=== PATIENT | female | born 1965 | race Caucasian/White ===

== ENCOUNTER → 2017-07-16 | Outpatient (CLI) | payer OTHER | END | disposition home or self-care (01) | LOC: SURG 14:06 | PROVIDERS: ATTEND Anesthesiology | DX: M54.16 Radiculopathy, lumbar region (principal); M53.3 Sacrococcygeal disorders, not elsewhere classified; M79.7 Fibromyalgia; E11.8 Type 2 diabetes mellitus with unspecified complications; E03.9 Hypothyroidism, unspecified; G43.909 Migraine, unspecified, not intractable, without status migrainosus; I10 Essential (primary) hypertension; F17.200 Nicotine dependence, unspecified, uncomplicated; Z90.49 Acquired absence of other specified parts of digestive tract | CPT/HCPCS: 99214 ==

== ENCOUNTER 2019-02-28 07:21 | Inpatient (IN) | payer SELFPAY ==
[~2019-02-28] VITALS: Ht 170.2 cm; Wt 76.3 kg
[2019-02-28] MEDS ORDERED: IV NORMAL SALINE 1,000ML 1,000 ML IV ONE ×2 (07:30→09:00)
--- NOTE | 2019-02-28 07:46 | PHYS DOC ---
Past History Past Medical History: Hypertension Past Medical History Limited due to poor historian Past Surgical History Limited due to poor historian Smoking: Quit Greater Than 1 Year Alcohol Use: None Drug Use: None Social History Limited due to poor historian Adult General Chief Complaint Chief Complaint: SYNCOPE HPI HPI 53-year-old female presents via EMS with report of dizziness upon getting up this morning. It is unclear if patient had a full syncopal episode. Patient is a poor historian. Patient reports she thinks it might be due to her recently started blood pressure medications. Denies fever/chills. Patient reports recent fall but cannot report where she hurts. EMS reports this AM patient did not fall. Paramedics has reported patient recently admitted to [place], however upon spouse arrival patient actually recently admitted to [facility]. Spouse also reports concern that patient is having increased psychiatric issues at this time. Reports very liable. Reports will be cognisant one minute and then will start wailing and crying. Also with have hallucinations such as having a full conversation on the phone with no one on the other line. Psychiatry had seen patient at [facility] and had recommend inpatient psychiatric stay, however patient had refused. HPI limited due to poor historian. Review of Systems Review of Systems Constitutional: Denies fever or chills HENT: Denies epistaxis Respiratory: Denies cough or shortness of breath Cardiovascular: Reports syncope or near syncope GI: Denies vomiting Musculoskeletal: Denies neck pain. Denies deformity Integument: Denies laceration Neurologic: Reports dizziness and lightheadedness Review of systems limited due to poor historian. Current Medications Current Medications Current Medications Medications (Trade) Dose Ordered Sig/Roberto Start Time Stop Time Status Last Admin Dose Admin Sodium Chloride 1,000 ml @ 1,000 mls/hr 1X ONCE 02/28/19 07:30 02/28/19 08:29 UNV Physical Exam Physical Exam Constitutional: Well developed, well nourished, no acute distress, non-toxic appearance HENT: Normocephalic, atraumatic, oropharynx moist, right nare rings noted Eyes: PERRL, EOMI, conjunctiva normal, no discharge Neck: Normal range of motion, no midline tenderness, supple Cardiovascular: Heart rate normal, regular rhythm Lungs & Thorax: Bilateral breath sounds clear to auscultation, no wheezing Abdomen: Soft, no tenderness, pelvis stable and nontender Skin: Warm, dry, no erythema, no rash Extremities: No tenderness, ROM intact, no edema Neurologic: Alert and oriented X 3, patient slow to respond but appropriate, no focal deficits noted Psychologic: Affect flat EKG EKG @0737 NSR at 79bpm, NO ST elevation, t wave inversion III, low voltage QRS Radiology/Procedures Radiology/Procedures PROCEDURE: PORTABLE CHEST 1V AP chest x-ray HISTORY: Syncope. FINDINGS: Heart size normal. Mediastinal silhouette is normal. No pneumothorax or pleural effusions. At the left upper lobe there is a 1.3 cm density raising the possibility of pulmonary nodule overlapping the posterior sixth rib. Bones are unremarkable. IMPRESSION: No acute process. Possible 1.3 cm left upper lobe pulmonary nodule. This could be further assessed with CT imaging. Electronically signed by: Chadd Shelby MD (02/28/2019 8:16 AM) [facility] Course & Med Decision Making Course & Med Decision Making Pertinent Labs and Imaging studies reviewed. (See chart for details) Patient presents via EMS with report of syncopal vs near syncopal episode. Patient recently admitted to [facility] for hypertension. Reports started on new medications. Patient reports she thinks that the blood pressure medications are making her dizzy/lightheaded. Patient noted to be hypotensive 94/61 upon arrival. Patient with flat affect and slow to respond. NO focal deficit noted, however, patient is a poor historian. EKG stable. Labs obtained and posted to chart. CXR stable. Orthostatic VS positive upon sitting down to 79/58. Unable to stand due to lightheadedness. IVF hydration provided. Hypokalemia addressed. UA also with signs of infection. Empiric antibiotics given. Of note: Patient's spouse arrived and provided more information. Patient actually was at [facility] recently where they started new medications. Spouse also reports concern that patient is having increased psychiatric issues at this time. Reports very liable. Reports will be cognisant one minute and then will start wailing and crying. Also with have hallucinations such as having a full conversation on the phone with no one on the other line. Psychiatry had seen patient at [facility] and had recommend inpatient psychiatric stay, however patient had refused. Patient requiring admission for further evaluation and treatment. Discussed with Dr. Singer (hospitalist) who is in agreement with admission. Discussed findings and plan with patient, who acknowledges understanding and agreement. Dragon Disclaimer Dragon Disclaimer This electronic medical record was generated, in whole or in part, using a voice recognition dictation system. Departure Departure: Impression: Primary Impression: Episode of syncope Additional Impressions: Orthostatic hypotension Psychiatric symptoms Hypokalemia UTI (urinary tract infection) Disposition: ADMITTED INPATIENT Admitting Physician: Dawood Singer Condition: STABLE Referrals: SAMMIE HICKS (PCP) Critical Care Time Critical care time was 30 minutes which includes time at bedside, spent in discussion of patient's care with specialists and/or family members, with interpretation of laboratory and/or radiological studies and is exclusive of procedures. Problem Qualifiers Primary Impression: Episode of syncope Syncope type: unspecified Qualified Codes: R55 - Syncope and collapse Additional Impressions: UTI (urinary tract infection) Urinary tract infection type: acute cystitis Hematuria presence: without hematuria Qualified Codes: N30.00 - Acute cystitis without hematuria FILEMON PEDERSON DO Feb 28, 2019 07:45
--- NOTE | 2019-02-28 08:19 | RAD ---
AP chest x-ray HISTORY: Syncope. FINDINGS: Heart size normal. Mediastinal silhouette is normal. No pneumothorax or pleural effusions. At the left upper lobe there is a 1.3 cm density raising the possibility of pulmonary nodule overlapping the posterior sixth rib. Bones are unremarkable. IMPRESSION: No acute process. Possible 1.3 cm left upper lobe pulmonary nodule. This could be further assessed with CT imaging. Electronically signed by: Chadd Shelby MD (02/28/2019 8:16 AM) [facility]
[2019-02-28 08:21] LABS: BASO # 0.1 x10^3/uL (0.0-0.2); BASO % 1 % (0-3); EOS % 0 % (0-3); HEMATOCRIT 49.7 % (36.0-47.0); HEMOGLOBIN 17.1 g/dL (12.0-15.5); LYMPH # 2.5 x10^3/uL (1.0-4.8); LYMPH % 19 % (24-48); MEAN CORPUSCULAR HEMOGLOBIN 30 pg (25-35); MEAN CORPUSCULAR HGB CONC 35 g/dL (31-37); MEAN CORPUSCULAR VOLUME 86 fL (79-100); MONO # 0.8 x10^3/uL (0.0-1.1); MONO % 6 % (0-9); NEUT # 10.1 x10^3uL (1.8-7.7); NEUT % 74 % (31-73); PLATELET COUNT 311 x10^3/uL (140-400); RED BLOOD COUNT 5.75 x10^6/uL (3.50-5.40); RED CELL DISTRIBUTION WIDTH 14.4 % (11.5-14.5); WHITE BLOOD COUNT 13.6 x10^3/uL (4.0-11.0)
[2019-02-28] MEDS ORDERED: ONDANSETRON PF 4 MG/2 ML VIAL. IV ONE (09:00)
[2019-02-28 09:04] LABS: ALBUMIN 3.6 g/dL (3.4-5.0); ALBUMIN/GLOBULIN RATIO 0.9 (1.0-1.7); CALCIUM 9.7 mg/dL (8.5-10.1); CREATININE 1.1 mg/dL (0.6-1.0); GFR 51.6; MAGNESIUM 2.1 mg/dL (1.8-2.4); POTASSIUM 3.1 mmol/L (3.5-5.1); TOTAL PROTEIN 7.6 g/dL (6.4-8.2)
[2019-02-28 09:06] LABS: AMPHETAMINE/METHAMPHETAMINE NEG (NEG); BARBITURATES NEG (NEG); BENZODIAZEPINES NEG (NEG); CANNABINOIDS POS (NEG); COCAINE NEG (NEG); METHADONE NEG (NEG); OPIATES NEG (NEG); PHENCYCLIDINE NEG (NEG)
[2019-02-28 09:13] LABS: AMORPHOUS SEDIMENT,UR PRESENT /HPF; BACTERIA,URINE MOD /HPF (0-FEW); BILIRUBIN,URINE LARGE (NEG); CLARITY,URINE CLOUDY; COLOR,URINE AMBER; GLUCOSE,URINE NEG (NEG); NITRITE,URINE POS (NEG); SQUAMOUS EPITHELIAL CELL,UR FEW /LPF; UROBILINOGEN,URINE 1 mg/dL (0.2 mg/dL)
[2019-02-28 09:14] LABS: GRANULAR CASTS,URINE MANY /HPF; HYALINE CASTS, URINE MANY /HPF
[2019-02-28] MEDS ORDERED: DOCU100C28 PO (09:29)
[2019-02-28] MEDS ORDERED: LOSA1TAB22 PO (09:29)
[2019-02-28] MEDS ORDERED: PROP80CA3 PO (09:29)
[2019-02-28] MEDS ORDERED: DOXA8TAB59 PO (09:29)
[2019-02-28] MEDS ORDERED: OLAN5TAB9 PO (09:29)
[2019-02-28] MEDS ORDERED: LEVO75TA5 PO (09:29)
[2019-02-28] MEDS ORDERED: ASPI-630 PO (09:29)
[2019-02-28] MEDS ORDERED: IV NORMAL SALINE 50ML 50 ML ONE (09:30)
[2019-02-28] MEDS ORDERED: cefTRIAXone SODIUM 1 GM VIAL ONE (09:30)
[2019-02-28] MEDS ORDERED: POTASSIUM CHLORIDE 20 MEQ TABLET.ER. PO ONE ×2 (09:45→11:00)
[2019-02-28 10:07] VITALS: BP 132/90
[2019-02-28] MEDS ORDERED: ONDANSETRON PF 4 MG/2 ML VIAL. IV PRN (10:45)
[2019-02-28] MEDS ORDERED: oxyCODONE IR 5 MG TABLET PO PRN (10:45)
[2019-02-28] MEDS: POTASSIUM CL 20MEQ IN 0.9%NACL 1,000 ML IV SCH ×2 (11:08→21:06)
[2019-02-28 16:10] VITALS: BP 138/72
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
--- NOTE | 2019-02-28 19:02 | PDOC ---
Exam Note: Shashi Note: Please also refer to the separate dictated note~for this date of service dictated separately.~Patient seen individually. Discussed the patient with Nursing staff reviewed the chart.~Reviewed interim history and current functioning. Reviewed vital signs,~Labs/ Radiology~and current medications noted below. Continue current treatment with the changes noted in the dictated addendum note Assessment: Vital Signs: Vital Signs Date Time Temp Pulse Resp B/P (MAP) Pulse Ox O2 Delivery O2 Flow Rate FiO2 02/28/19 16:10 97.6 92 20 138/72 (94) 97 Room Air Labs: Laboratory Tests Test 02/28/19 07:52 02/28/19 08:04 02/28/19 08:53 02/28/19 11:50 White Blood Count 13.6 x10^3/uL (4.0-11.0) H Red Blood Count 5.75 x10^6/uL (3.50-5.40) H Hemoglobin 17.1 g/dL (12.0-15.5) H Hematocrit 49.7 % (36.0-47.0) H Mean Corpuscular Volume 86 fL (79-100) Mean Corpuscular Hemoglobin 30 pg (25-35) Mean Corpuscular Hemoglobin Concent 35 g/dL (31-37) Red Cell Distribution Width 14.4 % (11.5-14.5) Platelet Count 311 x10^3/uL (140-400) Neutrophils (%) (Auto) 74 % (31-73) H Lymphocytes (%) (Auto) 19 % (24-48) L Monocytes (%) (Auto) 6 % (0-9) Eosinophils (%) (Auto) 0 % (0-3) Basophils (%) (Auto) 1 % (0-3) Neutrophils # (Auto) 10.1 x10^3uL (1.8-7.7) H Lymphocytes # (Auto) 2.5 x10^3/uL (1.0-4.8) Monocytes # (Auto) 0.8 x10^3/uL (0.0-1.1) Eosinophils # (Auto) 0.0 x10^3/uL (0.0-0.7) Basophils # (Auto) 0.1 x10^3/uL (0.0-0.2) Sodium Level 139 mmol/L (136-145) Potassium Level 3.1 mmol/L (3.5-5.1) L Chloride Level 98 mmol/L (98-107) Carbon Dioxide Level 21 mmol/L (21-32) Anion Gap 20 (6-14) H Blood Urea Nitrogen 22 mg/dL (7-20) H Creatinine 1.1 mg/dL (0.6-1.0) H Estimated GFR (Cockcroft-Gault) 51.6 BUN/Creatinine Ratio 20 (6-20) Glucose Level 146 mg/dL (70-99) H Calcium Level 9.7 mg/dL (8.5-10.1) Magnesium Level 2.1 mg/dL (1.8-2.4) Total Bilirubin 1.0 mg/dL (0.2-1.0) Aspartate Amino Transferase (AST) 23 U/L (15-37) Alanine Aminotransferase (ALT) 28 U/L (14-59) Alkaline Phosphatase 103 U/L (46-116) Creatine Kinase 72 U/L (26-192) Creatine Kinase MB (Mass) 5.8 ng/mL (0.0-3.6) H Creatine Kinase MB Relative Index 8.1 % (0-4) H Troponin I Quantitative 0.050 ng/mL (0-0.055) 0.053 ng/mL (0-0.055) Total Protein 7.6 g/dL (6.4-8.2) Albumin 3.6 g/dL (3.4-5.0) Albumin/Globulin Ratio 0.9 (1.0-1.7) L Ethyl Alcohol Level < 10 mg/dL (0-10) Lactic Acid Level 1.7 mmol/L (0.4-2.0) Urine Collection Type U cath Urine Color [place] Urine Clarity Cloudy Urine pH 5.5 Urine Specific [place] >=1.030 Urine Protein 100 mg/dl (NEG-TRACE) Urine Glucose (UA) Neg mg/dL (NEG) Urine Ketones (Stick) 15 mg/dL (NEG) Urine Blood Trace (NEG) Urine Nitrite Pos (NEG) Urine Bilirubin Large (NEG) Urine Urobilinogen Dipstick 1 mg/dL (0.2 mg/dL) Urine Leukocyte Esterase Neg (NEG) Urine RBC 3-5 /HPF (0-2) Urine WBC 5-10 /HPF (0-4) Urine Squamous Epithelial Cells Few /LPF Urine Amorphous Sediment Present /HPF Urine Bacteria Mod /HPF (0-FEW) Urine Hyaline Casts Many /HPF Urine Granular Casts Many /HPF Urine Mucus Mod /LPF Urine Opiates Screen Neg (NEG) Urine Methadone Screen Neg (NEG) Urine Barbiturates Neg (NEG) Urine Phencyclidine Screen Neg (NEG) Urine Amphetamine/Methamphetamine Neg (NEG) Urine Benzodiazepines Screen Neg (NEG) Urine Cocaine Screen Neg (NEG) Urine Cannabinoids Screen Pos (NEG) Urine Ethyl Alcohol Neg (NEG) Test 02/28/19 14:58 Troponin I Quantitative 0.041 ng/mL (0-0.055) Current Medications: Meds: Current Medications Sodium Chloride 1,000 ml @ 1,000 mls/hr 1X ONCE IV Last administered on 02/28/19at 08:33; Start 02/28/19 at 07:30; Stop 02/28/19 at 10:32; Status DC Ondansetron HCl (Zofran) 4 mg 1X ONCE IV Last administered on 02/28/19at 09:14; Start 02/28/19 at 09:00; Stop 02/28/19 at 09:01; Status DC Sodium Chloride 1,000 ml @ 100 mls/hr 1X ONCE IV Last administered on 02/28/19at 09:14; Start 02/28/19 at 09:00; Stop 02/28/19 at 18:59; Status DC Potassium Chloride (Klor-Con) 40 meq 1X ONCE PO ; Start 02/28/19 at 09:45; Stop 02/28/19 at 09:46; Status DC Ceftriaxone Sodium 1 gm/ Sodium Chloride 50 ml @ 100 mls/hr 1X ONCE IV Last administered on 02/28/19at 09:45; Start 02/28/19 at 09:45; Stop 02/28/19 at 10:14; Status DC Sodium Chloride 50 ml @ As Directed STK-MED ONCE .ROUTE ; Start 02/28/19 at 09:30; Stop 02/28/19 at 09:31; Status DC Ceftriaxone Sodium (Rocephin) 1 gm STK-MED ONCE .ROUTE ; Start 02/28/19 at 09:30; Stop 02/28/19 at 09:31; Status DC Potassium Chloride/Sodium Chloride 1,000 ml @ 75 mls/hr Q12H IV Last adminis tered on 02/28/19at 11:08; Start 02/28/19 at 11:00 Oxycodone HCl (Roxicodone) 5 mg PRN Q3HRS PRN PO PAIN; Start 02/28/19 at 10:45 Ondansetron HCl (Zofran) 4 mg PRN Q8HRS PRN IV NAUSEA/VOMITING; Start 02/28/19 at 10:45 Potassium Chloride (Klor-Con) 40 meq 1X ONCE PO Last administered on 02/28/19at 11:19; Start 02/28/19 at 11:00; Stop 02/28/19 at 11:01; Status DC Active Scripts Active Reported Propranolol Hcl 80 Mg Cap.sa.24h 2 Cap PO DAILY Olanzapine 5 Mg Tablet 1 Tab PO QHS Losartan-Hctz 100-25 Mg Tab (Losartan/Hydrochlorothiazide) 1 Each Tablet 1 Tab PO DAILY Levothyroxine Sodium 75 Mcg Tablet 1 Tab PO DAILY Doxazosin Mesylate 8 Mg Tablet 1 Tab PO DAILY Docusate Sodium 100 Mg Capsule 1 Cap PO DAILY Aspirin 81 Mg Tab.chew 81 Mg PO DAILY I have reviewed the current psychotropics carefully including drug interactions. Risk benefit ratio favors no change other than as noted in my dictated progress note. Diagnosis: Problems: (1) Psychotic depression (2) Major depressive disorder, recurrent episode (3) Orthostatic hypotension (4) Psychiatric symptoms ANKUR PACK MD Feb 28, 2019 19:02
[2019-02-28 20:17] VITALS: BP 156/90
[2019-03-01] VITALS (7 sets, daily range): BP systolic 141–176; BP diastolic 81–119
[2019-03-01 08:11] LABS: ALBUMIN 3.2 g/dL (3.4-5.0); ALBUMIN/GLOBULIN RATIO 0.9 (1.0-1.7); CALCIUM 8.8 mg/dL (8.5-10.1); CREATININE 0.8 mg/dL (0.6-1.0); GFR 74.5; TOTAL BILIRUBIN 0.7 mg/dL (0.2-1.0); TOTAL PROTEIN 6.7 g/dL (6.4-8.2)
[2019-03-01 08:12] LABS: BASO # 0.1 x10^3/uL (0.0-0.2); BASO % 1 % (0-3); EOS % 0 % (0-3); HEMATOCRIT 43.3 % (36.0-47.0); HEMOGLOBIN 14.8 g/dL (12.0-15.5); LYMPH # 3.4 x10^3/uL (1.0-4.8); LYMPH % 26 % (24-48); MEAN CORPUSCULAR HEMOGLOBIN 30 pg (25-35); MEAN CORPUSCULAR HGB CONC 34 g/dL (31-37); MEAN CORPUSCULAR VOLUME 87 fL (79-100); MONO # 0.9 x10^3/uL (0.0-1.1); MONO % 7 % (0-9); NEUT # 8.3 x10^3uL (1.8-7.7); NEUT % 65 % (31-73); PLATELET COUNT 273 x10^3/uL (140-400); RED BLOOD COUNT 4.96 x10^6/uL (3.50-5.40); WHITE BLOOD COUNT 12.7 x10^3/uL (4.0-11.0)
[2019-03-01 08:20] LABS: POTASSIUM 2.9 mmol/L (3.5-5.1)
[2019-03-01] MEDS: POTASSIUM CHLORIDE 10MEQ 100 ML IV SCH ×4 (09:12→12:13)
[2019-03-01] MEDS ORDERED: AMLO10TA8 PO (10:12)
[2019-03-01] MEDS ORDERED: TEMA15CA PO (10:12)
[2019-03-01] MEDS ORDERED: SERT100T8 PO (10:12)
[2019-03-01] MEDS ORDERED: POTA10TA10 PO (10:12)
[2019-03-01] MEDS ORDERED: BACL10TA PO (10:12)
[2019-03-01] MEDS ORDERED: TRAM50TA PO (10:13)
[2019-03-01] MEDS ORDERED: GABA-586 PO (10:13)
[2019-03-01] MEDS ORDERED: AMIT75TA PO (10:13)
[2019-03-01] MEDS ORDERED: GABA300C8 PO (10:13)
[2019-03-01] MEDS ORDERED: TOPI100T8 PO (10:13)
[2019-03-01] MEDS: POTASSIUM CL 20MEQ IN 0.9%NACL 1,000 ML IV SCH ×2 (12:13→20:31)
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
[2019-03-01 16:23] LABS: CREATININE 0.7 mg/dL (0.6-1.0); GFR 86.9; POTASSIUM 3.7 mmol/L (3.5-5.1)
--- NOTE | 2019-03-01 18:28 | PDOC ---
Exam Note: Shashi Note: Please also refer to the separate dictated note~for this date of service dictated separately.~Patient seen individually. Discussed the patient with Nursing staff reviewed the chart.~Reviewed interim history and current functioning. Reviewed vital signs,~Labs/ Radiology~and current medications noted below. Continue current treatment with the changes noted in the dictated addendum note Assessment: Vital Signs: Vital Signs Date Time Temp Pulse Resp B/P (MAP) Pulse Ox O2 Delivery O2 Flow Rate FiO2 03/01/19 15:04 86 20 155/100 (118) 98 Room Air 03/01/19 15:03 97.9 I&O Intake and Output 03/01/19 07:00 Intake Total 1911 ml Balance 1911 ml Intake Oral 580 ml IV Total 1331 ml # Voids 3 Labs: Laboratory Tests Test 03/01/19 07:50 03/01/19 14:05 White Blood Count 12.7 x10^3/uL (4.0-11.0) H Red Blood Count 4.96 x10^6/uL (3.50-5.40) Hemoglobin 14.8 g/dL (12.0-15.5) Hematocrit 43.3 % (36.0-47.0) Mean Corpuscular Volume 87 fL (79-100) Mean Corpuscular Hemoglobin 30 pg (25-35) Mean Corpuscular Hemoglobin Concent 34 g/dL (31-37) Red Cell Distribution Width 14.0 % (11.5-14.5) Platelet Count 273 x10^3/uL (140-400) Neutrophils (%) (Auto) 65 % (31-73) Lymphocytes (%) (Auto) 26 % (24-48) Monocytes (%) (Auto) 7 % (0-9) Eosinophils (%) (Auto) 0 % (0-3) Basophils (%) (Auto) 1 % (0-3) Neutrophils # (Auto) 8.3 x10^3uL (1.8-7.7) H Lymphocytes # (Auto) 3.4 x10^3/uL (1.0-4.8) Monocytes # (Auto) 0.9 x10^3/uL (0.0-1.1) Eosinophils # (Auto) 0.0 x10^3/uL (0.0-0.7) Basophils # (Auto) 0.1 x10^3/uL (0.0-0.2) Sodium Level 142 mmol/L (136-145) 142 mmol/L (136-145) Potassium Level 2.9 mmol/L (3.5-5.1) *L 3.7 mmol/L (3.5-5.1) # Chloride Level 104 mmol/L (98-107) 105 mmol/L (98-107) Carbon Dioxide Level 23 mmol/L (21-32) 24 mmol/L (21-32) Anion Gap 15 (6-14) H 13 (6-14) Blood Urea Nitrogen 14 mg/dL (7-20) 12 mg/dL (7-20) Creatinine 0.8 mg/dL (0.6-1.0) 0.7 mg/dL (0.6-1.0) Estimated GFR (Cockcroft-Gault) 74.5 86.9 BUN/Creatinine Ratio 18 (6-20) Glucose Level 99 mg/dL (70-99) 102 mg/dL (70-99) H Calcium Level 8.8 mg/dL (8.5-10.1) 9.0 mg/dL (8.5-10.1) Total Bilirubin 0.7 mg/dL (0.2-1.0) Aspartate Amino Transferase (AST) 23 U/L (15-37) Alanine Aminotransferase (ALT) 25 U/L (14-59) Alkaline Phosphatase 89 U/L (46-116) Total Protein 6.7 g/dL (6.4-8.2) Albumin 3.2 g/dL (3.4-5.0) L Albumin/Globulin Ratio 0.9 (1.0-1.7) L Current Medications: Meds: Current Medications Sodium Chloride 1,000 ml @ 1,000 mls/hr 1X ONCE IV Last administered on 02/28/19at 08:33; Start 02/28/19 at 07:30; Stop 02/28/19 at 10:32; Status DC Ondansetron HCl (Zofran) 4 mg 1X ONCE IV Last administered on 02/28/19at 09:14; Start 02/28/19 at 09:00; Stop 02/28/19 at 09:01; Status DC Sodium Chloride 1,000 ml @ 100 mls/hr 1X ONCE IV Last administered on 02/28/19at 09:14; Start 02/28/19 at 09:00; Stop 02/28/19 at 18:59; Status DC Potassium Chloride (Klor-Con) 40 meq 1X ONCE PO ; Start 02/28/19 at 09:45; Stop 02/28/19 at 09:46; Status DC Ceftriaxone Sodium 1 gm/ Sodium Chloride 50 ml @ 100 mls/hr 1X ONCE IV Last administered on 02/28/19at 09:45; Start 02/28/19 at 09:45; Stop 02/28/19 at 10:14; Status DC Sodium Chloride 50 ml @ As Directed STK-MED ONCE .ROUTE ; Start 02/28/19 at 09:30; Stop 02/28/19 at 09:31; Status DC Ceftriaxone Sodium (Rocephin) 1 gm STK-MED ONCE .ROUTE ; Start 02/28/19 at 09:30; Stop 02/28/19 at 09:31; Status DC Potassium Chloride/Sodium Chloride 1,000 ml @ 75 mls/hr Q12H IV Last administered on 03/01/19at 12:13; Start 02/28/19 at 11:00 Oxycodone HCl (Roxicodone) 5 mg PRN Q3HRS PRN PO PAIN; Start 02/28/19 at 10:45 Ondansetron HCl (Zofran) 4 mg PRN Q8HRS PRN IV NAUSEA/VOMITING; Start 02/28/19 at 10:45 Potassium Chloride (Klor-Con) 40 meq 1X ONCE PO Last administered on 02/28/19at 11:19; Start 02/28/19 at 11:00; Stop 02/28/19 at 11:01; Status DC Potassium Chloride 100 ml @ 100 mls/hr Q1H IV Last administered on 03/01/19at 12:13; Start 03/01/19 at 08:30; Stop 03/01/19 at 12:29; Status DC Levothyroxine Sodium (Synthroid) 75 mcg DAILY06 PO ; Start 03/02/19 at 06:00 Amlodipine Besylate (Norvasc) 10 mg DAILY PO ; Start 03/02/19 at 09:00 Doxazosin Mesylate (Cardura) 8 mg DAILY PO ; Start 03/02/19 at 09:00 Losartan Potassium (Cozaar) 100 mg DAILY PO ; Start 03/02/19 at 09:00 Olanzapine (ZyPREXA ZYDIS) 5 mg QHS PO ; Start 03/01/19 at 21:00 Potassium Chloride (Klor-Con) 20 meq DAILYWBKFT PO ; Start 03/02/19 at 08:00 Propranolol HCl (Inderal La) 160 mg DAILY PO ; Start 03/02/19 at 09:00 Temazepam (Restoril) 15 mg QHS PO ; Start 03/01/19 at 21:00 Topiramate (Topamax) 100 mg BID PO ; Start 03/01/19 at 21:00 Hydrochlorothiazide (Hydrodiuril) 25 mg DAILY PO ; Start 03/02/19 at 09:00 Active Scripts Active Reported Gabapentin (Gabapentin) 300 Mg Capsule 2 Tab PO HS Gabapentin 300 Mg Capsule 1 Tab PO [id number] Amitriptyline Hcl 75 Mg Tablet 1 Tab PO HS Topiramate 100 Mg Tablet 1 Tab PO BID Tramadol Hcl (Tramadol HCl) 50 Mg Tablet 1 Tab PO Q6HRS PRN Baclofen 10 Mg Tablet 1 Tab PO DAILY PRN Sertraline Hcl 100 Mg Tablet 1 Tab PO DAILY Potassium Chloride 10 Meq Tablet.er 2 Tab PO DAILYWBKFT Temazepam 15 Mg Capsule 1 Tab PO HS Amlodipine Besylate 10 Mg Tablet 1 Tab PO DAILY Propranolol Hcl 80 Mg Cap.sa.24h 2 Cap PO DAILY Olanzapine 5 Mg Tablet 1 Tab PO QHS Losartan-Hctz 100-25 Mg Tab (Losartan/Hydrochlorothiazide) 1 Each Tablet 1 Tab PO DAILY Levothyroxine Sodium 75 Mcg Tablet 1 Tab PO DAILY Doxazosin Mesylate 8 Mg Tablet 1 Tab PO DAILY Docusate Sodium 100 Mg Capsule 1 Cap PO DAILY PRN Aspirin 81 Mg Tab.chew 81 Mg PO DAILY I have reviewed the current psychotropics carefully including drug interactions. Risk benefit ratio favors no change other than as noted in my dictated progress note. Diagnosis: Problems: (1) Psychotic depression (2) Major depressive disorder, recurrent episode (3) Orthostatic hypotension (4) Psychiatric symptoms (5) UTI (urinary tract infection) ANKUR PACK MD Mar 01, 2019 18:28
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
[2019-03-01] MEDS: TEMAZEPAM 15 MG CAPSULE PO SCH (20:28)
[2019-03-01] MEDS: TOPIRAMATE 100 MG TABLET. PO SCH (20:28)
[2019-03-02 05:36] VITALS: BP 155/98
[2019-03-02] MEDS: LEVOTHYROXINE 75 MCG TABLET PO SCH (05:54)
[2019-03-02 06:34] LABS: CALCIUM 8.6 mg/dL (8.5-10.1); CREATININE 0.7 mg/dL (0.6-1.0); GFR 86.9
[2019-03-02 06:39] LABS: POTASSIUM 2.9 mmol/L (3.5-5.1)
[2019-03-02] MEDS ORDERED: POTASSIUM CHLORIDE 20 MEQ TABLET.ER. PO ONE ×2 (07:00→09:00)
[2019-03-02] MEDS: TOPIRAMATE 100 MG TABLET. PO SCH ×2 (08:23→20:22)
[2019-03-02] MEDS: POTASSIUM CHLORIDE 20 MEQ TABLET.ER. PO SCH (08:24)
[2019-03-02] MEDS: PROPRANOLOL ER 80 MG CAP.ER.24H. PO SCH (08:24)
[2019-03-02] MEDS: amLODIPine BESYLATE 10 MG TABLET PO SCH (08:26)
[2019-03-02] MEDS: DOXAZOSIN MESYLATE 4 MG TABLET PO SCH (10:10)
[2019-03-02] MEDS: LOSARTAN 50 MG TABLET. PO SCH (10:10)
[2019-03-02] MEDS: hydroCHLOROthiazide 25 MG TABLET PO SCH (10:10)
[2019-03-02 10:54] VITALS: BP 162/101
[2019-03-02] MEDS: POTASSIUM CL 20MEQ IN 0.9%NACL 1,000 ML IV SCH ×2 (11:00→20:22)
[2019-03-02 12:35] LABS: CALCIUM 9.3 mg/dL (8.5-10.1); CREATININE 0.9 mg/dL (0.6-1.0); POTASSIUM 4.3 mmol/L (3.5-5.1)
[2019-03-02 15:09] VITALS: BP 105/73
[2019-03-02 18:57] VITALS: BP 127/83
[2019-03-02] MEDS: TEMAZEPAM 15 MG CAPSULE PO SCH (20:22)
[2019-03-02 23:18] VITALS: BP 105/70
--- NOTE | 2019-03-02 23:41 | PN ---
DATE: 03/02/2019 This late entry 03/01/2019 covers elements not covered in my initial note. Per nursing staff report, the patient remains psychotic, withdrawn. She has been screened by the [facility] and arrangements are being made to transfer her to the [facility]. I will sign off on the patient for now. ANKUR PACK MD DR: RODNEY/karissa JOB#: [id number] / [id number]
--- NOTE | 2019-03-03 01:45 | DS ---
DATE OF DISCHARGE: 03/02/2019 HOSPITAL COURSE: The patient is a 53-year-old female patient who was admitted to the Emergency Room with near syncope and syncopal episode. She has almost catatonic days there and could not respond. She could not give us any history. She has a blank stare. Her said she was at [facility] having increasingly bizarre behavior. Her speech is often responsive, monosyllabic and however, she has no active suicidal or homicidal ideation and she was seen by our psychiatrist who diagnosed her of psychotic disorder, unspecified. She also has history of cannabinoid abuse, history of major depressive disorder with psychotic features, rule out schizoaffective disorder, bipolar, depressed, psychotic features and basically she was stabilized medically, she was started on IV fluid with the potassium and her potassium has normalized. Her potassium on arrival was 2.9, has improved to 4.3. Her sodium has also remained stable as well as the rest of electrolytes and BUN and creatinine. Her white cell count was initially slightly elevated at 13,600 and was down to 12,700; however, the patient was afebrile. Urinalysis was unremarkable and her chest x-ray showed no evidence of any infiltrate. She apparently was accepted at [facility] and will be transferred there for inpatient psychiatric stabilization. PHYSICAL EXAMINATION: GENERAL: When I saw her this afternoon, she looked well and was clearly in no apparent respiratory distress. No pallor, jaundice, cyanosis, or thyromegaly. No jugular venous distension. No limb edema. VITAL SIGNS: Her heart rate was 95, blood pressure was 105/73, temperature was 97.8, respiratory rate was 20, and oxygen saturation was 94%. HEAD, EYES, EARS, NOSE AND THROAT: Normocephalic, atraumatic. NECK: Supple. HEART: Showed normal first and second heart sounds. No gallop, rub or murmur. CHEST: Clear to auscultation. No crepitation or rhonchi. ABDOMEN: Distended, soft, nontender. NEUROLOGIC: She was awake, alert, continued to be less interactive but grossly all her cranial nerves are intact. She moves extremities without difficulty. The patient's intake over the last 24 hours was 1900, no output was recorded. LABORATORY DATA: Her lab work this morning showed that her white cell count was 12,700, hemoglobin 14, hematocrit 43, MCV 87 and platelet count of 273,000. Her serum sodium was 138, potassium 4.3, chloride 102, bicarbonate 24, anion gap of 12, BUN 9, creatinine 0.9, estimated GFR was 65 mL per minute. Her glucose 153 and calcium was 9.3. Urinalysis was unremarkable. Her urine culture was so far showed no growth and toxic screen was positive for cannabinoids, negative for opiates, methadone, barbiturates, phencyclidine, amphetamine, methamphetamine, benzodiazepine, cocaine and alcohol. DISCHARGE MEDICATIONS: She will be discharged on following medications: Amitriptyline 75 mg at bedtime, amlodipine 10 mg daily, aspirin 81 mg once a day, baclofen 10 mg daily, docusate sodium 100 mg daily, doxazosin mesylate 8 mg daily, gabapentin 300 mg 3 times a day, levothyroxine 75 mcg daily, losartan/hydrochlorothiazide 1 tablet p.o. daily, olanzapine 5 mg at bedtime, potassium chloride 20 mEq daily, propranolol 160 mg daily, sertraline 100 mg daily, temazepam 15 mg at bedtime, topiramate 100 mg twice a day for headache, tramadol 50 mg every 6 hours. FINAL DISCHARGE DIAGNOSES: 1. Psychotic disorder, unspecified, cannabinoid abuse, history of major depressive disorder with psychotic features. 2. Hypertension. 3. Hypothyroidism. 4. Migraine headache. JULIO FLORES MD DR: HAKAN/karissa JOB#: [id number] / [id number]
[2019-03-03 05:20] VITALS: BP 128/85
[2019-03-03] MEDS: LEVOTHYROXINE 75 MCG TABLET PO SCH (05:44)
[2019-03-03 06:18] LABS: HEMATOCRIT 46.2 % (36.0-47.0); HEMOGLOBIN 15.8 g/dL (12.0-15.5); RED BLOOD COUNT 5.28 x10^6/uL (3.50-5.40); RED CELL DISTRIBUTION WIDTH 14.2 % (11.5-14.5); WHITE BLOOD COUNT 11.1 x10^3/uL (4.0-11.0)
[2019-03-03 06:23] LABS: CALCIUM 9.2 mg/dL (8.5-10.1); CREATININE 0.8 mg/dL (0.6-1.0); GFR 74.5
[2019-03-03 06:28] LABS: POTASSIUM 2.8 mmol/L (3.5-5.1)
[2019-03-03] MEDS ORDERED: POTASSIUM CHLORIDE 20 MEQ TABLET.ER. PO ONE ×2 (07:00→09:00)
[2019-03-03] MEDS: POTASSIUM CHLORIDE 20 MEQ TABLET.ER. PO SCH (08:53)
[2019-03-03] MEDS: hydroCHLOROthiazide 25 MG TABLET PO SCH (08:53)
[2019-03-03] MEDS: LOSARTAN 50 MG TABLET. PO SCH (08:54)
[2019-03-03] MEDS: DOXAZOSIN MESYLATE 4 MG TABLET PO SCH (08:54)
[2019-03-03] MEDS: PROPRANOLOL ER 80 MG CAP.ER.24H. PO SCH (08:55)
[2019-03-03] MEDS: amLODIPine BESYLATE 10 MG TABLET PO SCH (08:55)
[2019-03-03] MEDS: TOPIRAMATE 100 MG TABLET. PO SCH (08:56)
[2019-03-03 10:36] VITALS: BP 115/84
[2019-03-03] MEDS: POTASSIUM CL 20MEQ IN 0.9%NACL 1,000 ML IV SCH (10:39)
[2019-03-03 10:56] LABS: CALCIUM 9.4 mg/dL (8.5-10.1); CREATININE 0.8 mg/dL (0.6-1.0); GFR 74.5
--- NOTE | 2019-03-04 07:38 | EKG ---
[address] [address] Test Date: 2019-02-28 Test Time: 07:37:14 Pat Name: PEPE CORTEZ Department: Room: Gender: F [employer]: DAVID : [id number] Requested By: FILEMON PEDERSON Order Number: [id number] Reading MD: Measurements Intervals [place] Rate: 79 P: 58 FL: 178 QRS: -7 QRSD: 80 T: -13 QT: 410 QTc: 471 Interpretive Statements SINUS RHYTHM LEFTWARD AXIS QRS(T) CONTOUR ABNORMALITY CONSISTENT WITH SEPTAL INFARCT AGE UNDETERMINED T ABNORMALITY IN INFERIOR LEADS ABNORMAL ECG RI6.01 No previous ECG available for comparison
== END 2019-03-03 11:34 | DRG 312 ==
LOC: ER 07:21 → 1 SOUTH 09:37
PROVIDERS: ADMIT Hospitalist; ATTEND Hospitalist
DX: R55 Syncope and collapse (principal); F32.3 Major depressive disorder, single episode, severe with psychotic features; N39.0 Urinary tract infection, site not specified; F29 Unspecified psychosis not due to a substance or known physiological condition; I10 Essential (primary) hypertension; E03.9 Hypothyroidism, unspecified; G43.909 Migraine, unspecified, not intractable, without status migrainosus; I95.1 Orthostatic hypotension; Z87.891 Personal history of nicotine dependence; F43.10 Post-traumatic stress disorder, unspecified; E86.0 Dehydration; E87.6 Hypokalemia; F12.10 Cannabis abuse, uncomplicated; Z88.5 Allergy status to narcotic agent
CPT/HCPCS: 36415; 71045; 80048; 80053; 80307; 81001; 82553; 83605; 83735; 84484; 85025; 85027; 87086; 93005; 96361; 96374; G0480; J0696; J2405; J3480; 99285-25; J7030